=== PATIENT | male | born 1935 | race Caucasian/White ===

== ENCOUNTER 2017-08-05 22:58 | Emergency (ER) | payer BC, MEDICARE, OTHER ==
[~2017-08-05] VITALS: Ht 175.3 cm; Wt 80.0 kg
[2017-08-05 23:08] VITALS: BP 194/84; PULSE 95; RESP 20; TEMP 98; O2SAT 96
[2017-08-05] MEDS ORDERED: SYMB160A INH (23:36)
[2017-08-05] MEDS ORDERED: TIOT1AER INH (23:36)
[2017-08-05] MEDS ORDERED: MONT10TA2 PO (23:36)
[2017-08-05] MEDS ORDERED: ALBUAER3 INH (23:36)
[2017-08-05 23:37] VITALS: RESP 18; O2SAT 97
[2017-08-05] MEDS ORDERED: methylPREDNISolone SOD SUCC 125 MG/2 ML VIAL IV PUSH ONE (23:45)
[2017-08-05] MEDS ORDERED: RESP: ALBUTEROL 2.5 MG/3 ML NEB (SCH) INH ONE (23:45)
--- NOTE | 2017-08-05 23:48 | PD ---
HPI Chief Complaint: Respiratory Symptoms Time Seen by Provider: 23:31 Travel History International Travel<30 days: No Contact w/Intl Traveler<30days: No Traveled to known affect area: No History of Present Illness HPI 82-year-old male presents to the emergency department by private transportation for complaint of shortness of breath 2 days. Patient has had wheezing. Patient has history of COPD and prior history of CHF. Patient currently is on 3 different inhalers. Patient was recently taken off his Symbicort due to steroid related thrush. Patient's symptoms of mouth sensitivity have improved off of Symbicort. Patient states since starting new inhaler, Stiolto, however symptoms have worsened as far as his shortness of breath and wheezing. No fever no chills or productive cough congestion patient has had mild ankle edema. No report of orthopnea has had dyspnea on exertion. Patient denies chest pain. No prior visits to this facility. Patient is under care of Dr. Paz. PENDING SALE TO [facility] Past Medical History Narrative Medical COPD CHF no tobacco use 30 years occasional alcohol use; nursing notes reviewed Asthma: Yes Congestive Heart Failure: Yes COPD: Yes Diminished Hearing: No Respiratory: Yes (COPD, emphysema, asthma) Immunizations Current: Yes Tetanus Vaccination: < 5 Years Influenza Vaccination: Yes Past Surgical History Tonsillectomy: Yes Social History Alcohol Use: Yes (2 GLASSES OF WINE DAILY) Tobacco Use: No (QUIT 30 + YRS AG0) Substance Use: No Allergies-Medications (Allergen,Severity, Reaction): Coded Allergies: penicillin G (Verified Allergy, Unknown, 08/05/17) Reported Meds & Prescriptions Reported Meds & Active Scripts Active Proair Hfa 8.5 GM Inh (Albuterol Sulfate) 90 Mcg/Act Aer 2 Puff INH Q4-6H PRN 108 mcg/actuation Medrol Dosepak (Methylprednisolone) 4 Mg Dspk 4 Mg PO DIRECTED Per Pharmacist direction Reported Stiolto Respimat Inh (Tiotropium-Olodaterol Inh) 2.5-2.5 Mcg/Act Aero 2 Puff INH DAILY Proair Hfa 8.5 GM Inh (Albuterol Sulfate) 90 Mcg/Act Aer 2 Puff INH Q4-6H PRN 108 mcg/actuation Singulair (Montelukast Sodium) 10 Mg Tab 10 Mg PO HS Symbicort Inh (Budesonide/Formoterol Fumarate) 160-4.5 Mcg/Act Aero 2 Puff INH Q12HR Review of Systems Except as stated in HPI: all other systems reviewed are Neg General / Constitutional: No: Fever, Chills HENT: No: Congestion Cardiovascular: Positive: Dyspnea on exertion, No: Chest Pain or Discomfort, Palpitations, Diaphoresis Respiratory: Positive: Cough, Shortness of Breath, Wheezing, No: Hemoptysis, Pleuritic Pain Gastrointestinal: No: Nausea, Vomiting, Abdominal Pain Genitourinary: No: Flank Pain Musculoskeletal: No: Myalgias, Arthralgias Skin: No Rash Neurologic: No: Weakness, Dizziness, Syncope Psychiatric: No: Anxiety Endocrine: No: Heat Intolerance Hematologic/Lymphatic: No: Easy Bruising Physical Exam Narrative GENERAL: Well-developed well-nourished male in no acute distress with expiratory wheezes SKIN: Warm and dry. HEAD: Normocephalic. EYES: No scleral icterus. No injection or drainage. NECK: Supple, trachea midline. No JVD or lymphadenopathy. CARDIOVASCULAR: Regular rate and rhythm without murmurs, gallops, or rubs. RESPIRATORY: Breath sounds equal bilaterally diminished with expiratory wheezing. No accessory muscle use. GASTROINTESTINAL: Abdomen soft, non-tender, nondistended. MUSCULOSKELETAL: No cyanosis, trace bilateral ankle edema. BACK: Nontender without obvious deformity. No CVA tenderness. Data Data Last Documented VS Vital Signs Date Time Temp Pulse Resp B/P (MAP) Pulse Ox O2 Delivery O2 Flow Rate FiO2 08/06/17 00:55 86 18 160/75 (103) Room Air 08/05/17 23:37 97 08/05/17 23:08 98.0 Orders Orders Complete Blood Count With Diff (08/05/17 23:31) Basic Metabolic Panel (Bmp) (08/05/17 23:31) B-Type Natriuretic Peptide (08/05/17 23:31) Magnesium (Mg) (08/05/17 23:31) Troponin I (08/05/17 23:31) Iv Access Insert/Monitor (08/05/17 23:31) Oximetry (08/05/17 23:31) Chest, Single Ap (08/05/17 23:31) Methylprednisolone So Succ Inj (Solumedr (08/05/17 23:45) Albuterol Neb (Albuterol Neb) (08/05/17 23:45) Electrocardiogram (08/06/17 ) Albuterol Neb (Albuterol Neb) (08/06/17 01:00) Albuterol Neb (Albuterol Neb) (08/06/17 01:00) Ed Discharge Order (08/06/17 02:30) Labs Laboratory Tests Test 08/05/17 23:31 08/05/17 23:45 White Blood Count 9.5 TH/MM3 Red Blood Count 4.39 MIL/MM3 Hemoglobin 14.3 GM/DL Hematocrit 42.6 % Mean Corpuscular Volume 96.9 FL Mean Corpuscular Hemoglobin 32.6 PG Mean Corpuscular Hemoglobin Concent 33.6 % Red Cell Distribution Width 12.4 % Platelet Count 193 TH/MM3 Mean Platelet Volume 7.5 FL Neutrophils (%) (Auto) 60.0 % Lymphocytes (%) (Auto) 21.4 % Monocytes (%) (Auto) 7.5 % Eosinophils (%) (Auto) 10.0 % Basophils (%) (Auto) 1.1 % Neutrophils # (Auto) 5.8 TH/MM3 Lymphocytes # (Auto) 2.0 TH/MM3 Monocytes # (Auto) 0.7 TH/MM3 Eosinophils # (Auto) 0.9 TH/MM3 Basophils # (Auto) 0.1 TH/MM3 CBC Comment DIFF FINAL Differential Comment Blood Urea Nitrogen 12 MG/DL Creatinine 0.81 MG/DL Random Glucose 117 MG/DL Calcium Level 8.6 MG/DL Magnesium Level 2.3 MG/DL Sodium Level 142 MEQ/L Potassium Level 3.8 MEQ/L Chloride Level 106 MEQ/L Carbon Dioxide Level 28.6 MEQ/L Anion Gap 7 MEQ/L Estimat Glomerular Filtration Rate 91 ML/MIN Troponin I LESS THAN 0.02 NG/ML B-Type Natriuretic Peptide 45 PG/ML MDM Medical Decision Making Medical Screen Exam Complete: Yes Emergency Medical Condition: Yes Medical Record Reviewed: Yes Interpretation(s) CBC & BMP Diagram 08/05/17 23:31 08/05/17 23:45 Calcium Level 8.6, Magnesium Level 2.3 Vital Signs Date Time Temp Pulse Resp B/P (MAP) Pulse Ox O2 Delivery O2 Flow Rate FiO2 08/06/17 00:55 86 18 160/75 (103) Room Air 08/05/17 23:37 18 97 Room Air 08/05/17 23:37 18 97 Room Air 08/05/17 23:08 98.0 95 20 194/84 (120) 96 troponin I: Less than 0.02, elevated; BNP: 45, elevated Last Impressions Chest X-Ray 08/05/17 2331 Signed Impressions: CONCLUSION: Mild interstitial prominence which may represent underlying interstitial diseas e. Rounded area of density in the left lower chest related either to the anterior left fifth rib versus underlying pulmonary nodule. This area could be further e valuated with a CT examination of the chest at some point. EKG: Normal sinus rhythm rate [address] elevation or injury pattern age- indeterminate QS septally Differential Diagnosis Exacerbation COPD, CHF, bronchitis, pneumonia, adverse medication reaction Narrative Course Patient placed on monitor with continuous pulse oximetry albuterol updraft treatment ordered along with Solu-Medrol basic labs collected chest x-ray and EKG ordered Patient symptomatically improved but persistent wheezing additional albuterol nebs 2 administered Lab values found to be grossly normal range specifically troponin I is less than 0.02 and BNP is not elevated at 45 chest x-ray shows interstitial changes nonspecific and no cardiomegaly or effusion or infiltrate. EKG sinus rhythm no acute ST elevation injury pattern age-indeterminate QS septally After 3 albuterol nebulized treatments patient is clinically markedly improved room air O2 saturation 96% no wheezing no work of breathing patient at this time is stable for outpatient management and follow-up with his suit attendant Dr. Paz Diagnosis Primary Impression: COPD exacerbation Referrals: Primary Care Physician 1 day Patient Instructions: General Instructions Additional Instructions: Follow-up with your primary care provider 1 day Continue current medications as presently prescribed and add Medrol Dosepak taper Return to the emergency department for any concerns or change in condition Take acetaminophen/Tylenol as needed for fever 100.4F or greater Med/Other Pt SpecificInfo: Prescription(s) given Scripts Albuterol Neb (Albuterol Neb) 2.5 Mg/3 Ml Neb 2.5 MG NEB Q4HR NEB Y for SHORTNESS OF BREATH, #60 NEBULE 0 Refills Prov: Viki Noriega MD 08/06/17 Nebulizer/Adult Mask (Nebulizer/Adult Mask) 1 Kit Kit KIT .XX DIRECTED for Breathing Treatment, #1 0 Refills Prov: Viki Noriega MD 08/06/17 Albuterol 8.5 GM Inh (Proair Hfa 8.5 GM Inh) 90 Mcg/Act Aer 2 PUFF INH Q4-6H Y for SHORTNESS OF BREATH, #1 INHALER 0 Refills 108 mcg/actuation Prov: Viki Noriega MD 08/06/17 Methylprednisolone Dosepak (Medrol Dosepak) 4 Mg Dspk 4 MG PO DIRECTED, #1 DSPK 0 Refills Per Pharmacist direction Prov: Viki Noriega MD 08/06/17 Disposition: 01 DISCHARGE HOME Condition: Stable Viki Noriega MD Aug 05, 2017 23:48
[2017-08-06 00:03] LABS: CHLORIDE 106 MEQ/L (98-107); SODIUM (NA) 142 MEQ/L (136-145)
[2017-08-06 00:05] LABS: CALCIUM 8.6 MG/DL (8.5-10.1)
[2017-08-06 00:06] LABS: BICARBONATE 28.6 MEQ/L (21.0-32.0); BLOOD UREA NITROGEN 12 MG/DL (7-18); GLUCOSE,RANDOM 117 MG/DL (74-106); MAGNESIUM 2.3 MG/DL (1.5-2.5)
[2017-08-06 00:07] LABS: AUTOMATED NEUTROPHIL # 5.8 TH/MM3 (1.8-7.7); BASOPHIL # 0.1 TH/MM3 (0-0.2); BASOPHIL % 1.1 % (0.0-2.0); EOSINOPHIL # 0.9 TH/MM3 (0-0.4); HEMATOCRIT 42.6 % (39.0-51.0); HEMOGLOBIN 14.3 GM/DL (13.0-17.0); LYMPH % 21.4 % (9.0-44.0); MEAN CELL VOLUME 96.9 FL (80.0-100.0); MEAN CORPUSCULAR HEMOGLOBIN 32.6 PG (27.0-34.0); MEAN CORPUSCULAR HGB CONC 33.6 % (32.0-36.0); MEAN PLATELET VOLUME 7.5 FL (7.0-11.0); MONO % 7.5 % (0.0-8.0); MONOCYTE # 0.7 TH/MM3 (0-0.9); PLATELET COUNT 193 TH/MM3 (150-450); RED BLOOD COUNT 4.39 MIL/MM3 (4.50-5.90); RED CELL DISTRIBUTION WIDTH 12.4 % (11.6-17.2); WHITE BLOOD COUNT 9.5 TH/MM3 (4.0-11.0)
[2017-08-06 00:09] LABS: CREATININE 0.81 MG/DL (0.60-1.30); GLOMERULAR FILTRATION RATE 91 ML/MIN (>89)
[2017-08-06 00:14] LABS: TROPONIN I LESS THAN 0.02 NG/ML (0.02-0.05)
--- NOTE | 2017-08-06 00:40 | RADRPT ---
EXAM DATE: 08/06/2017 12:27 AM EDT AGE/SEX: 82 years / Male INDICATIONS: Shortness of breath starting today CLINICAL DATA: This is the patient's initial encounter. Patient reports that signs and symptoms have been present for 1 day and indicates a pain score of 0/10. MEDICAL/SURGICAL HISTORY: Chronic obstructive pulmonary disease. . Left rotator cuff repair COMPARISON: No prior exams available for comparison. FINDINGS: The heart size is normal. There is some mild prominence in interstitium in the mid to lower lungs. Th ere is a rounded area of density seen in the left lower chest likely related to the fifth rib however an underlying pulmonary nodule cannot be excluded. Surgical fasteners are seen at the left humeral j oint. There is degenerative change at the right glenohumeral joint. CONCLUSION: Mild interstitial prominence which may represent underlying interstitial disease. Rounded area of density in the left lower chest related either to the anterior left fifth rib versus underlying pulmonary nodule. This area could be further evaluated with a CT examination of the chest at some point. Electronically signed by: Gerson Patel MD 08/06/2017 12:38 AM EDT
[2017-08-06 00:55] VITALS: BP 160/75; PULSE 86; RESP 18
[2017-08-06] MEDS ORDERED: RESP: ALBUTEROL 2.5 MG/3 ML NEB (SCH) NEB ONE ×2 (01:00)
[2017-08-06] MEDS ORDERED: ALBUAER3 INH (01:04)
[2017-08-06] MEDS ORDERED: MEDR4PAK PO (01:04)
[2017-08-06 02:30] VITALS: BP 150/73; PULSE 84; RESP 18; O2SAT 96
[2017-08-06] MEDS ORDERED: ALBU0.08 NEB (02:31)
[2017-08-06] MEDS ORDERED: NEBULIZER/ADULT1 KIT (02:31)
--- NOTE | 2017-08-06 07:06 | EKG ---
Date Performed: 08/06/2017 Time Performed: 01:40:47 PTAGE: 82 years EKG: Sinus rhythm SEPTAL MYOCARDIAL INFARCTION ABNORMAL ECG S NO PREVIOUS TRACING DOCTOR: Luis Fernando Santana Interpretating Date/Time 08/06/2017 07:04:36
== END 2017-08-06 02:46 | disposition home or self-care (01) ==
LOC: PHED 22:58
DX: J44.1 Chronic obstructive pulmonary disease with (acute) exacerbation (principal); R94.31 Abnormal electrocardiogram [ECG] [EKG]; I50.9 Heart failure, unspecified; Z87.891 Personal history of nicotine dependence
CPT/HCPCS: 71045; 80048; 83735; 83880; 84484; 85025; 93005; 94640; 94664; 96374; 99285; J2930; J7613